=== PATIENT | female | born 1970 | race Two or more races ===

== ENCOUNTER 2019-12-18 15:27 | Emergency (ER) | payer OTHER ==
[~2019-12-18] VITALS: Ht 152.4 cm; Wt 81.4 kg
[2019-12-18 15:59] VITALS: Ht 152.4 cm; Wt 81.4 kg
[2019-12-18 17:55] LABS: BASOPHIL % 0.3 % (0-2); PLATELET COUNT 247 x10^3mcL (130-400); RED CELL DISTRIBUTION WIDTH 13.2 % (11.5-14.5)
[2019-12-18 17:57] LABS: ALBUMIN 3.9 g/dL (3.4-5.0); CALCIUM 11.5 mg/dL (8.5-10.1); CARBON DIOXIDE 27.9 mmol/L (21-32); CHLORIDE SERUM 101 mmol/L (98-107); CREATININE SERUM 0.7 mg/dL (0.6-1.0); GFR1 > 60 mL/min; GLUCOSE SERUM 146 mg/dL (74-106); POTASSIUM SERUM 4.2 mmol/L (3.5-5.1); SODIUM SERUM 137 mmol/L (136-145); TOTAL PROTEIN, SERUM 7.7 g/dL (6.4-8.2)
[2019-12-18 17:58] LABS: ALKALINE PHOSPHATASE 143 U/L (46-116); ALT/SGPT 69 U/L (14-59); AST/SGOT 25 U/L (15-37); BILIRUBIN TOTAL 0.27 mg/dL (0.20-1.00)
[2019-12-18 18:12] LABS: microscopic required? YES; urine erythrocyte 2+ (NEGATIVE)
[2019-12-18 19:12] VITALS: BP 142/84
== END 2019-12-18 18:50 | disposition home or self-care (01) ==
LOC: ED 15:27
PROVIDERS: Emergency Medicine; Student in an Organized Health Care Education/Training Program
DX: N20.0 Calculus of kidney (principal); N12 Tubulo-interstitial nephritis, not specified as acute or chronic; N39.0 Urinary tract infection, site not specified; R16.0 Hepatomegaly, not elsewhere classified; Z98.51 Tubal ligation status; Z88.0 Allergy status to penicillin
CPT/HCPCS: 36415; J0696; J1885

== ENCOUNTER → 2020-01-21 | Outpatient (CLI) | payer OTHER ==
[2020-01-21 08:30] LABS: BASOPHIL % 0.3 % (0-2); PLATELET COUNT 246 x10^3mcL (130-400); RED CELL DISTRIBUTION WIDTH 13.5 % (11.5-14.5)
[2020-01-21 09:33] LABS: ALBUMIN 3.5 g/dL (3.4-5.0); ALKALINE PHOSPHATASE 128 U/L (46-116); ALT/SGPT 46 U/L (14-59); AST/SGOT 19 U/L (15-37); BILIRUBIN TOTAL 0.36 mg/dL (0.20-1.00); CALCIUM 10.9 mg/dL (8.5-10.1); CHLORIDE SERUM 105 mmol/L (98-107); CREATININE SERUM 0.5 mg/dL (0.6-1.0); FREE T4 0.91 ng/dL (0.76-1.46); GFR1 > 60 mL/min; GLUCOSE SERUM 133 mg/dL (74-106); HDL CHOLESTEROL 43 mg/dL (40-60); POTASSIUM SERUM 4.4 mmol/L (3.5-5.1); SODIUM SERUM 139 mmol/L (136-145); TOTAL PROTEIN, SERUM 7.1 g/dL (6.4-8.2); TRIGLYCERIDES 100 mg/dL (<150)
[2020-01-21 09:43] LABS: CHOLESTEROL 203 mg/dL (<200); CHOLESTEROL/HDL RATIO 4.7
== END | disposition home or self-care (01) ==
LOC: LB 07:51
PROVIDERS: Internal Medicine
DX: R73.09 Other abnormal glucose (principal); D72.829 Elevated white blood cell count, unspecified; E04.1 Nontoxic single thyroid nodule; E83.52 Hypercalcemia; K76.0 Fatty (change of) liver, not elsewhere classified; R94.5 Abnormal results of liver function studies
CPT/HCPCS: 84439; 86376

== ENCOUNTER 2020-11-26 07:59 | Emergency (ER) | payer OTHER, SELFPAY ==
[~2020-11-26] VITALS: Ht 160 cm; Wt 68.0 kg
[2020-11-26 08:00] VITALS: BP 165/101; Ht 160 cm; Wt 68.0 kg
== END 2020-11-26 08:40 | disposition home or self-care (01) ==
LOC: ED 07:59
DX: U07.1 COVID-19 (principal); Z88.0 Allergy status to penicillin; Z98.51 Tubal ligation status
CPT/HCPCS: U0003